=== PATIENT | female | born 1980 ===

== ENCOUNTER 2019-04-14 01:09 | Emergency (ER) | payer SELFPAY ==
[2019-04-14] MEDS ORDERED: CARVEDILOL 6.25 MG TAB ONE (02:16)
[2019-04-14] MEDS ORDERED: LORAZEPAM 1 MG TABLET ONE (02:16)
--- NOTE | 2019-04-14 02:25 | ER ---
Nurse's Notes [facility] Name: Kelly Potts Age: 38 yrs Sex: Female : 1980 Arrival Date: 04/14/2019 Time: 01:13 Bed 13 Private MD: Diagnosis: Anxiety disorder. Palpitations Presentation: 04/14 01:35 Presenting complaint: Patient states: Pt reports she felt her blood pressure was ea elevated this AM, stated she felt short of breath, had headache, epigastric pain and anxiety. Transition of care: patient was not received from another setting of care. Onset of symptoms was April 14, 2019. Risk Assessment: Do you want to hurt yourself or someone else? Patient reports no desire to harm self or others. Initial Sepsis Screen: Does the patient meet any 2 criteria? No. Patient's initial sepsis screen is negative. Does the patient have a suspected source of infection? No. Patient's initial sepsis screen is negative. Care prior to arrival: None. 01:35 Method Of Arrival: Ambulatory ea 01:35 Acuity: MESHA 3 ea Triage Assessment: 01:40 General: Appears in no apparent distress. Behavior is calm, cooperative, appropriate ea for age. Pain: Complains of pain in xyphoid area Quality of pain is described as burning. Neuro: Level of Consciousness is awake, alert, obeys commands, Oriented to person, place, time, situation. Cardiovascular: Patient's skin is warm and dry. Respiratory: Airway is patent Respiratory effort is even, unlabored, Respiratory pattern is regular, symmetrical. Derm: Skin is pink, warm \T\ dry. Musculoskeletal: Circulation, motion, and sensation intact. 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 - Social history:: Smoking status: Patient/guardian denies using tobacco. - Ebola Screening: : No symptoms or risks identified at this time. Screenin:39 Abuse screen: Denies threats or abuse. Nutritional screening: No deficits noted. ea Tuberculosis screening: No symptoms or risk factors identified. Fall Risk None identified. Assessment: 01:44 General: Appears in no apparent distress. uncomfortable, Behavior is anxious, Reports rr5 anxious. Pain: Complains of pain in abdomen Pain does not radiate. Pain currently is 7 out of 10 on a pain scale. Quality of pain is described as aching, Pain began gradually, Is intermittent. Neuro: Level of Consciousness is awake, alert, obeys commands, Oriented to person, place, time, situation, Appropriate for age. Cardiovascular: Reports shortness of breath, HTN Capillary refill < 3 seconds Patient's skin is warm and dry. Respiratory: Reports shortness of breath Airway is patent Respiratory effort is even, unlabored, Respiratory pattern is regular, symmetrical. GI: No signs and/or symptoms were reported involving the gastrointestinal system. : No signs and/or symptoms were reported regarding the genitourinary system. EENT: No signs and/or symptoms were reported regarding the EENT system. Derm: Skin is intact, Skin temperature is warm. Musculoskeletal: Circulation, motion, and sensation intact. Capillary refill < 3 seconds. 02:25 Reassessment: Patient appears in no apparent distress at this time. Patient is alert, rr5 oriented x 3, equal unlabored respirations, skin warm/dry/pink. discharge instruction given and explained without complaints made, verbalized understanding. 02:31 Reassessment: Patient and/or family updated on plan of care and expected duration. Pain ea level reassessed. Patient is alert, oriented x 3, equal unlabored respirations, skin warm/dry/pink. Discharge instruction given to patient, verbalized the understanding of instruction. Pt left ambulatory, accompanied by family, pt tolerating well. Vital Signs: 01:37 BP 141 / 82; Pulse 85; Resp 18; Temp 99.6; Pulse Ox 99% on R/A; Weight 74.39 kg; Height ea 5 ft. 1 in. (154.94 cm); Pain 7/10; 02:25 BP 130 / 75; Pulse 75; Resp 17; Pulse Ox 99% on R/A; rr5 01:37 Body Mass Index 30.99 (74.39 kg, 154.94 cm) ea ED Course: 01:13 Patient arrived in ED. ag3 01:37 Corby Mercedes RN is Primary Nurse. rr5 01:37 Triage completed. ea 01:38 Patient has correct armband on for positive identification. Bed in low position. Call ea light in reach. Side rails up X 1. 01:38 Arm band placed on right wrist. Patient placed in an exam room, on a stretcher, on ea pulse oximetry. 01:46 Tomas Pollock MD is Attending Physician. pkzuly 02:31 No provider procedures requiring assistance completed. Patient did not have IV access ea during this emergency room visit. Administered Medications: 02:23 Drug: carvedilol 12.5 mg Route: PO; rr5 02:33 Follow up: Response: No adverse reaction ea 02:24 Drug: Ativan 1 mg Route: PO; rr5 02:33 Follow up: Response: No adverse reaction ea Outcome: 02:22 Discharge ordered by . pkl 02:32 Discharged to home ambulatory, with family. ea 02:32 Condition: stable 02:32 Discharge instructions given to patient, Instructed on discharge instructions, follow up and referral plans. medication usage, Demonstrated understanding of instructions, follow-up care, medications, Prescriptions given X 2. 02:33 Patient left the ED. ea Signatures: Tomas Pollock MD MD pkl Lisa Lam, RN RN Macy Kaur3 Corby Mercedes, RN RN rr5
--- NOTE | 2019-04-14 02:26 | EDPHYS ---
Physician Documentation [facility] Name: Kelly Potts Age: 38 yrs Sex: Female : 1980 Arrival Date: 04/14/2019 Time: 01:13 Bed 13 Private MD: ED Physician Tomas Pollock HPI: 04/14 02:16 This 38 yrs old Female presents to ER via Ambulatory with complaints of High Blood pkl Pressure. 02:16 The patient presents with a history of heart racing. Onset: The symptoms/episode pkl began/occurred today. Associated signs and symptoms: Pertinent positives: anxiety, chest pain, SOB. The patient has experienced similar episodes in the past, several times. 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 - Social history:: Smoking status: Patient/guardian denies using tobacco. - Ebola Screening: : No symptoms or risks identified at this time. ROS: 02:16 Eyes: Negative for injury, pain, redness, and discharge, ENT: Negative for injury, pkl pain, and discharge, Neck: Negative for injury, pain, and swelling. 02:16 Cardiovascular: Positive for chest pain, palpitations. 02:16 Respiratory: Positive for shortness of breath. 02:16 Abdomen/GI: Negative for abdominal pain. 02:16 Back: Negative for acute changes. 02:16 : Negative for urinary symptoms. 02:16 MS/extremity: Negative for acute changes. 02:16 Skin: Negative for rash. 02:16 Neuro: Negative for altered mental status. 02:16 Psych: Positive for anxiety. Exam: 02:16 Head/Face: Normocephalic, atraumatic. Eyes: Pupils equal round and reactive to light, pkl extra-ocular motions intact. Lids and lashes normal. Conjunctiva and sclera are non-icteric and not injected. Cornea within normal limits. Periorbital areas with no swelling, redness, or edema. ENT: Nares patent. No nasal discharge, no septal abnormalities noted. Tympanic membranes are normal and external auditory canals are clear. Oropharynx with no redness, swelling, or masses, exudates, or evidence of obstruction, uvula midline. Mucous membranes moist. Neck: Trachea midline, no thyromegaly or masses palpated, and no cervical lymphadenopathy. Supple, full range of motion without nuchal rigidity, or vertebral point tenderness. No Meningismus. Chest/axilla: Normal chest wall appearance and motion. Nontender with no deformity. No lesions are appreciated. Cardiovascular: Regular rate and rhythm with a normal S1 and S2. No gallops, murmurs, or rubs. Normal PMI, no JVD. No pulse deficits. Respiratory: Lungs have equal breath sounds bilaterally, clear to auscultation and percussion. No rales, rhonchi or wheezes noted. No increased work of breathing, no retractions or nasal flaring. Abdomen/GI: Soft, non-tender, with normal bowel sounds. No distension or tympany. No guarding or rebound. No evidence of tenderness throughout. Back: No spinal tenderness. No costovertebral tenderness. Full range of motion. Skin: Warm, dry with normal turgor. Normal color with no rashes, no lesions, and no evidence of cellulitis. MS/ Extremity: Pulses equal, no cyanosis. Neurovascular intact. Full, normal range of motion. Neuro: Awake and alert, GCS 15, oriented to person, place, time, and situation. Cranial nerves II-XII grossly intact. Motor strength 5/5 in all extremities. Sensory grossly intact. Cerebellar exam normal. Normal gait. 02:16 Psych: Behavior/mood is anxious, Affect is calm, Patient has no thoughts/intents to harm self or others. Vital Signs: 01:37 BP 141 / 82; Pulse 85; Resp 18; Temp 99.6; Pulse Ox 99% on R/A; Weight 74.39 kg; Height ea 5 ft. 1 in. (154.94 cm); Pain 7/10; 02:25 BP 130 / 75; Pulse 75; Resp 17; Pulse Ox 99% on R/A; rr5 01:37 Body Mass Index 30.99 (74.39 kg, 154.94 cm) ea MDM: 01:47 Patient medically screened. pkl 02:16 Data reviewed: vital signs, nurses notes, EKG. pkl Administered Medications: 02:23 Drug: carvedilol 12.5 mg Route: PO; rr5 02:33 Follow up: Response: No adverse reaction ea 02:24 Drug: Ativan 1 mg Route: PO; rr5 02:33 Follow up: Response: No adverse reaction ea Disposition: 04/14/19 02:22 Discharged to Home. Impression: Anxiety disorder. Palpitations. - Condition is Stable. - Prescriptions for Ativan 0.5 mg Oral Tablet - take 1 tablet by ORAL route 2 times per day As needed; 20 tablet. Carvedilol 12.5 mg Oral Tablet - take 1 tablet by ORAL route 2 times per day with food; 20 tablet. - Medication Reconciliation Form, Thank You Letter, Antibiotic Education, Prescription Opioid Use form. - Follow up: Private Physician; When: 2 - 3 days; Reason: Re-evaluation by your physician. - Problem is new. - Symptoms have improved. Signatures: Tomas Pollock MD MD pkl Lisa Lam RN RN Corby Barcenas RN RN rr5 Corrections: (The following items were deleted from the chart) 02:33 02:22 04/14/2019 02:22 Discharged to Home. Impression: Anxiety disorder. Palpitations. ea Condition is Stable. Forms are Medication Reconciliation Form, Thank You Letter, Antibiotic Education, Prescription Opioid Use. Follow up: Private Physician; When: 2 - 3 days; Reason: Re-evaluation by your physician. Problem is new. Symptoms have improved. pkl
--- NOTE | 2019-04-14 13:49 | EKG ---
Test Date: 2019-04-14 Test Time: 01:48:01 Scientific Informatics Analyst: PELON MEASUREMENT RESULTS: Intervals: Rate: 83 WV: 152 QRSD: 100 QT: 394 QTc: 462 [place]: P: 35 WV: 152 QRS: 20 T: 5 INTERPRETIVE STATEMENTS: Normal sinus rhythm Normal ECG No previous ECG available for comparison Electronically Signed On 04-14-19 13:47:16 CDT by Bart Velasquez
== END 2019-04-14 02:33 | disposition home or self-care (01) ==
LOC: ER 01:09
DX: R00.2 Palpitations (principal)
CPT/HCPCS: 93005; 99283